=== PATIENT | female | born 1995 | race Two or more races ===

== ENCOUNTER 2019-11-23 19:30 | Emergency (ER) | payer OTHER ==
[~2019-11-23] VITALS: Ht 160 cm; Wt 83.9 kg
[~2019-11-23 19:30] MED LIST: ATENOLOL25 MG; KETOROLAC TROME10 MG PO
== END 2019-11-23 20:52 | disposition home or self-care (01) ==
LOC: ER 19:30
DX: H73.011 Bullous myringitis, right ear (principal)

== ENCOUNTER 2020-09-21 12:30 | Emergency (ER) | payer OTHER ==
[~2020-09-21] VITALS: Ht 154.9 cm; Wt 90.7 kg
== END 2020-09-21 16:11 | disposition home or self-care (01) ==
LOC: ER 12:30
DX: U07.1 COVID-19 (principal); R50.9 Fever, unspecified; R06.02 Shortness of breath

== ENCOUNTER → 2022-08-11 | Emergency (ER) | payer OTHER ==
[~2022-08-11] VITALS: Ht 157.5 cm; Wt 95.3 kg
== END | disposition home or self-care (01) ==
LOC: ER 08:45
DX: J03.90 Acute tonsillitis, unspecified (principal)

== ENCOUNTER 2023-02-17 12:48 | Emergency (ER) | payer OTHER ==
[~2023-02-17] VITALS: Ht 157.5 cm; Wt 95.3 kg
[2023-02-17] MEDS ORDERED: COZAAR25 MG PO (13:19)
== END 2023-02-17 14:56 | disposition home or self-care (01) ==
LOC: ER 12:48
DX: M72.2 Plantar fascial fibromatosis (principal); I10 Essential (primary) hypertension